=== PATIENT | female | born 1940 | race Caucasian/White ===

== ENCOUNTER 2018-12-19 13:40 | Inpatient (IN) | payer MEDICARE, BC ==
[~2018-12-19 13:40] MED LIST: Glycopyrrolate 0.2 MG/ML 5 ML SYRINGE ONE; Lidocaine 1% PF 5 ML VIAL ONE; Ondansetron PF 4 MG/2 ML Vial ONE; PROPOFOL 200 MG/20 ML VIAL ONE; Rocuronium Bromide 10 MG/ML (10ML VIAL) ONE
--- NOTE | 2018-12-19 14:27 | RAD ---
Chest AP view INDICATION: Fall COMPARISON: None FINDINGS: Lungs:COPD Cardiac silhouette pulmonary vasculature:Moderate cardiomegaly Pleural spaces:No pleural effusion or pneumothorax is demonstrated. Upper abdomen:No abnormality seen. Osseous structures: Thoracolumbar scoliosis. There is scattered degenerative and osteoarthritic vazquez e present. Additional findings:None. IMPRESSION: No acute cardiopulmonary abnormality.
--- NOTE | 2018-12-19 14:29 | RAD ---
XR Femur Rt 2 View STANDARD INDICATION: Fall at home COMPARISON: None. FINDINGS: Bones: There is an obliquely oriented fracture involving the distal femoral shaft with displacement o f the distal fracture fragment medially and posteriorly one shaft width. There is 5.7 cm of apposition of the fracture fragments. Soft tissues: Within normal limits. Joints: There is mild degenerative arthrosis of the hip. Visualized right knee demonstrates mild huff ges. IMPRESSION: Displaced distal right femoral shaft fracture
--- NOTE | 2018-12-19 14:30 | RAD ---
AP view of the pelvis INDICATION: Fall at home COMPARISON: None. FINDINGS: Bones: No acute fracture or subluxation is evident. Bone mineralization appears within normal limits. Hips: Mild degenerative change of both hips SI joints and symphysis pubis: Mild degenerative change Intrapelvic contents: Within normal limits. IMPRESSION: No acute osseous abnormality.
[2018-12-19 14:46] LABS: PTT 29.1 SEC (22.9-36.1); Prothrombin Time 13.6 SEC (12.0-14.7)
[2018-12-19 14:48] LABS: #Lymphocytes 0.7 thou/uL (1.20-3.40); #Monocytes 0.5 thou/uL (0.11-0.59); #Neutrophils 8.2 thou/uL (1.40-6.50); %Basophils 0.3 % (0.0-1.0); %Eosinophils 0.1 % (0.0-10.0); %Lymphocytes 7.5 % (21.0-51.0); %Monocytes 5.3 % (0.0-10.0); %Neutrophils 86.8 % (42.0-75.0); Hemoglobin 11.8 g/dL (12.0-16.0); Mean Corpuscular HGB CONC 34.2 g/dL (32.0-36.0); Mean Corpuscular Hemoglobin 31.1 pg (27.0-31.0); Mean Corpuscular Volume 91.1 fL (78.0-98.0); Mean Platelet Volume 6.7 fL (7.4-10.4); Platelet Count 268 thou/uL (130-400); RBC Distribution Width 11.7 % (11.5-14.5); White Blood Cell (WBC) Count 9.4 thou/uL (4.8-10.8)
[2018-12-19 15:00] LABS: ALT (SGPT) 23 U/L (8-55); AST (SGOT) 26 U/L (5-34); Albumin 4.4 g/dL (3.4-4.8); Alkaline Phosphatase 65 U/L (40-150); Anion Gap 13 mmol/L (10-20); BUN (Urea Nitrogen) 19 mg/dL (9.8-20.1); Bilirubin, Total 0.6 mg/dL (0.2-1.2); Calc. Creatinine Clearance 0 mL/min (70-130); Calcium 9.3 mg/dL (7.8-10.44); Carbon Dioxide 23 mmol/L (23-31); Chloride 107 mmol/L (98-107); Estimated GFR-MDRD 90; Globulin 2.7 g/dL (2.4-3.5); Glucose 131 mg/dL (83-110); Potassium 3.7 mmol/L (3.5-5.1); Protein, Total 7.1 g/dL (6.0-8.3); Sodium 139 mmol/L (136-145)
[2018-12-19] MEDS ORDERED: Morphine 4 MG/ML VIAL SLOW IVP PRN (15:44)
[2018-12-19] MEDS ORDERED: Ondansetron ODT 4 MG TAB PO PRN (15:44)
[2018-12-19] MEDS ORDERED: Dextrose 5% in Water 1,000 ML IV PRN (15:44)
[2018-12-19] MEDS ORDERED: Dextrose 50% Abboject 50 ML SYRINGE SLOW IVP PRN (15:44)
[2018-12-19] MEDS ORDERED: hydrALAZINE 20 MG/ML VIAL SLOW IVP PRN ×3 (15:44→17:09)
[2018-12-19] MEDS ORDERED: Morphine 2 MG/ML SYRINGE SLOW IVP PRN (15:44)
[2018-12-19] MEDS ORDERED: HumaLOG 300 UNITS/3 ML VIAL SC PRN (15:44)
[2018-12-19] MEDS ORDERED: ceFAZolin Sodium (SDC) 2 GM/100 ML BAG ONE (15:55)
[2018-12-19] MEDS ORDERED: Fentanyl 100 MCG/2 ML VIAL ONE ×2 (16:04→17:50)
--- NOTE | 2018-12-19 17:47 | RAD ---
RIGHT FEMUR SIX FLUOROSCOPIC SPOT IMAGES: INDICATIONS: History of ORIF of the right femur. COMPARISON: Prior exam from 12/19/2018. FINDINGS: Since the comparison examination, there has been interval open reduction and internal fixation of the displaced distal femoral shaft fracture. Fracture alignment is near anatomic. Instrumentation proj ects in the expected position without postoperative complication. Total fluoroscopic time was 109.2 seconds. Total exposure was 8.35 millicuries. IMPRESSION: Interval open reduction and internal fixation of the right distal femoral shaft fracture. POS: BH
[2018-12-19] MEDS ORDERED: Promethazine HCl 25 MG/ML VIAL IM PRN (17:50)
[2018-12-19] MEDS ORDERED: HYDROmorphone 2 MG/ML VIAL SLOW IVP PRN (17:50)
[2018-12-19] MEDS ORDERED: Ondansetron HCl/PF 4 MG/2 ML Vial IVP PRN (17:50)
[2018-12-19] MEDS ORDERED: Promethazine HCl 25 MG/ML VIAL SLOW IVP PRN (17:50)
[2018-12-19] MEDS ORDERED: PACU-Morphine 4MG/ML VIAL SLOW IVP PRN (17:50)
[2018-12-19] MEDS: Senokot S 8.6-50 MG TAB PO SCH (19:59)
[2018-12-19] MEDS: Gabapentin 100 MG CAP PO SCH (19:59)
[2018-12-19] MEDS: Acetaminophen 500 MG TAB PO SCH ×2 (19:59→23:31)
[2018-12-19] MEDS: Famotidine 20 MG TAB PO SCH (19:59)
[2018-12-19] MEDS: Ibuprofen 600 MG TAB PO SCH (20:00)
[2018-12-19] MEDS: CEFAZOLIN 2 GM, IV Admixture Fee-Chemo 1 UNITS in Sodium Chloride 0.9% 100 ML IVPB SCH (23:31)
[2018-12-20 00:14] VITALS: BMI 30.1
[2018-12-20] MEDS ORDERED: traMADol HCl 50 MG TAB PO PRN ×2 (01:21)
--- NOTE | 2018-12-20 01:49 | PRG ---
DATE OF SERVICE: 12/20/2018 SUBJECTIVE: The patient is currently on the surgical floor. She is admitted today, status post ground level fall, when she sustained a right distal femur fracture. She has undergone operative procedure by Orthopedics today, which she tolerated well. She has returned to the floor. She has a diet, and we are transitioning her pain medications to p.o. OBJECTIVE: VITAL SIGNS: The patient's vital signs are stable. She is afebrile. GENERAL: She appears in no distress. She is resting comfortably at time of my exam. Postop dressing is clean, dry, and intact. ASSESSMENT: 1. Status post ground level fall. 2. Status post open reduction and internal fixation of right distal femur fracture. PLAN: Plan will be to continue supportive care. Begin physical and occupational therapy in the morning and discuss placement. Job ID: [id number]
[2018-12-20] MEDS: Ibuprofen 600 MG TAB PO SCH ×4 (03:30→20:04)
[2018-12-20] MEDS: Acetaminophen 500 MG TAB PO SCH ×4 (05:53→22:59)
[2018-12-20 06:19] LABS: #Lymphocytes 1.4 thou/uL (1.20-3.40); #Monocytes 0.5 thou/uL (0.11-0.59); #Neutrophils 3.9 thou/uL (1.40-6.50); %Basophils 0.6 % (0.0-1.0); %Eosinophils 0.5 % (0.0-10.0); %Lymphocytes 23.6 % (21.0-51.0); %Monocytes 9.2 % (0.0-10.0); %Neutrophils 66.1 % (42.0-75.0); Hemoglobin 8.8 g/dL (12.0-16.0); Mean Corpuscular HGB CONC 34.4 g/dL (32.0-36.0); Mean Corpuscular Hemoglobin 32.4 pg (27.0-31.0); Mean Corpuscular Volume 94.2 fL (78.0-98.0); Mean Platelet Volume 6.5 fL (7.4-10.4); Platelet Count 182 thou/uL (130-400); RBC Distribution Width 11.9 % (11.5-14.5); White Blood Cell (WBC) Count 5.9 thou/uL (4.8-10.8)
[2018-12-20 06:40] LABS: Phosphorus 3.3 mg/dL (2.3-4.7)
[2018-12-20 06:42] LABS: Anion Gap 10 mmol/L (10-20); BUN (Urea Nitrogen) 14 mg/dL (9.8-20.1); Calc. Creatinine Clearance 96 mL/min (70-130); Calcium 7.8 mg/dL (7.8-10.44); Carbon Dioxide 22 mmol/L (23-31); Chloride 107 mmol/L (98-107); Estimated GFR-MDRD Greater than 90; Glucose 107 mg/dL (83-110); Magnesium 2.1 mg/dL (1.6-2.6); Potassium 3.5 mmol/L (3.5-5.1); Sodium 135 mmol/L (136-145)
[2018-12-20] MEDS: CEFAZOLIN 2 GM, IV Admixture Fee-Chemo 1 UNITS in Sodium Chloride 0.9% 100 ML IVPB SCH (07:51)
--- NOTE | 2018-12-20 07:56 | HP ---
CHIEF COMPLAINT: The patient presents for evaluation of fall. History is provided by the patient. The patient comes in using EMS. HISTORY OF PRESENT ILLNESS: The patient is a 78-year-old female, who presents to the ER using EMS after a ground-level fall this morning. It took her until 12 p.m. to get to her phone and call EMS. En route, the patient's vitals were stable. GCS 15. Pain from the right leg. Denies loss of consciousness or hitting her head. The patient reports no other injury, no pain from her chest, abdomen, or pelvic region. PAST MEDICAL HISTORY: The patient reports having neuropathy, which caused her to have numbness of her leg and lost balance, in which she used gabapentin 600 three times a day. PAST SURGICAL HISTORY: 1. Hysterectomy. 2. Hernia repair. SOCIAL HISTORY: Alcohol, social. Drug use, no. Smoking, no. The patient is living along at home. ALLERGIES: NO KNOWN ALLERGIES. MEDICATIONS: Current medications, 1. Gabapentin 600 three times a day. 2. Cholesterol medication. LABORATORY INTERPRETATION: White blood count is 9.4, hemoglobin 11.8. Coag normal. CPK 552. Sodium 139, potassium 3.7, creatinine 0.64, glucose 131, and calcium 9.3. AST 26, ALT 23. Chest x-ray is normal. X-ray of the right femur showed displaced distal right femur shaft fracture. REVIEW OF SYSTEMS: Noncontributory expect as per HPI. PHYSICAL EXAMINATION: CONSTITUTIONAL: The patient is alert and awake, no signs of acute distress. HEENT: Normal on inspection. No bleeding. No bruising. No tender to touch. NECK: Normal range of motion. Trachea midline. No tenderness. RESPIRATORY: Chest has no bruising, no bleeding, no deformity. Chest raises equal bilaterally. Breath sounds are clear bilaterally. CARDIOVASCULAR: Regular rate and rhythm. Heart sounds are normal. ABDOMEN: Soft and nondistended. Bowel sounds are normal. BACK: Normal inspection. Normal range of motion. No tenderness. EXTREMITIES: Upper extremities; neurovascularly intact. Normal range of motion. Lower extremities; left extremity has normal range of motion, neurovascularly intact. Right extremity shows ecchymose of the lateral of the right thigh. Right lower extremity shortened lateral external rotation. Range of motion is limited. Sensation is intact. Posterior tibial pulse is normal. Peripheral pulse is normal. NEUROLOGIC: No focal neuro deficits. SKIN: Warm, dry, and normal in color. DIAGNOSES: 1. Status post fall. 2. fracture of the right femur. PLAN: Dr. Campuzano already saw the patient. He decided to take the patient to the OR for operation today. Anticipate the patient will be moved to surgical floor for postop. Plan for placement is acute rehab facility. Job ID: [id number] MTDD
[2018-12-20] MEDS ORDERED: Potassium Phosphate 15 MMOL in Sodium Chloride 0.9% 250 ML 250 ML IVPB SCH (08:30)
[2018-12-20] MEDS: Famotidine 20 MG TAB PO SCH (08:34)
[2018-12-20] MEDS: Senokot S 8.6-50 MG TAB PO SCH ×2 (08:34→20:04)
[2018-12-20] MEDS: Gabapentin 100 MG CAP PO SCH ×3 (08:34→20:03)
[2018-12-20] MEDS: Ascorbic Acid 500 mg Chewable Tablet PO SCH ×2 (09:01→20:04)
[2018-12-20] MEDS: Polyethylene Glycol 3350 17 GM Packet PO SCH (09:01)
[2018-12-20] MEDS ORDERED: Hydrocortisone Sod Succ/PF 100 mg/2 ml Vial IVP SCH (10:00)
--- NOTE | 2018-12-20 11:05 | CON ---
DATE OF CONSULTATION: 12/19/2018 HISTORY OF PRESENT ILLNESS: Ms. Carcamo is a pleasant 78-year-old female, she was walking and fell onto her right knee earlier this morning. The patient was down, was home alone, was able to call. At this point, pain currently 2/10 and was brought in progression of deformity of right lower extremity. PAST MEDICAL HISTORY: Hypercholesterolemia, neuropathy, as well as osteoporosis. PAST SURGICAL HISTORY: Hysterectomy and a hernia. MEDICATIONS: Include Neurontin and cholesterol medicine, not specified. ALLERGIES: NO KNOWN DRUG ALLERGIES. SOCIAL HISTORY: No smoking, tobacco, or drug use. Currently lives at home alone. Was previously manual laborer aquatic life, has three sons at bedside. PHYSICAL EXAMINATION: VITAL SIGNS: 110/61, 75, 16, 97, 2/10 pain, 98% on room air. GENERAL: Alert and oriented female, resting comfortably in bed. No acute distress. EXTREMITIES: Right lower extremity, the patient has sensation decreased in a glove and stocking distribution distally. She will flex and extend her toes. She is slightly internally rotated. Ecchymosis and bruising in posterior knee appears stable. There is a small effusion. The patient has brisk cap refill. The patient has H and H of 11 and 34. INR 1. Creatinine 0.64. RADIOGRAPHS: Show a distal 3rd femoral shaft fracture. IMPRESSION: Right distal 3rd metaphyseal distal shaft fracture. ASSESSMENT AND PLAN: The patient on-call the OR. I discussed with the patient performing a retrograde intramedullary nailing of her right femur. I discussed the risks and benefits of surgery to include pain, scar, bleeding, infection, damage to vital structures, decreased range of motion or strength, knee pain, nonunion, malunion, loss of life or limb. The patient understood the risks and benefits and elects to proceed. The patient will be n.p.o., will be taken to the OR. She received Ancef preoperatively and we will plan with right retrograde nail fixation. Job ID: [id number]
--- NOTE | 2018-12-20 12:48 | OP ---
DATE OF PROCEDURE: 12/19/2018 PREOPERATIVE DIAGNOSIS: Right distal third femoral shaft fracture. POSTOPERATIVE DIAGNOSIS: Right distal third femoral shaft fracture. PROCEDURE PERFORMED: Retrograde intramedullary nailing distal third femoral shaft fracture. TIRE MAN: Lorenzo Squires PA-C. ANESTHESIA: General. ESTIMATED BLOOD LOSS: 150 mL. TOURNIQUET TIME: None. IMPLANTS: Synthes 3 x 340 retrograde antegrade femoral nail and three 5-0 screws. ANTIBIOTICS: Ancef 2 g. COMPLICATIONS: None. HISTORY OF PRESENT ILLNESS: Ms. Carcamo is a 78-year-old female who is status post ground level fall onto her knees. The patient has a history of neuropathy. She fell, sustained a fracture to her right distal femur. I discussed the risks and benefits of the retrograde antegrade femoral nail. I discussed risks and benefits of surgery including pain, scar, bleeding, infection, damage to vital structures , decreased range of motion and strength, nonunion, malunion, fracture above or below the stem, need for further surgeries, damage to vital structures arthritis, loss of life or limb. The patient understood the risks and benefits of procedure and elected to proceed. DESCRIPTION OF PROCEDURE: Time-out was performed designating the patient's right lower extremity as the operative site based on site, consents, and marking. After time-out, the patient's right lower extremity was prepped and draped in a sterile fashion. The patient was placed under fluoroscopic guidance, placed under position. We placed an incision down over the medial aspect of the patellar tendon down through the patellar tendon, blunt dissection to get to right at the center- center position for our guide pin. Radiographs ensured appropriate position on AP and lateral. After this, we placed our guide pin, passed our opening reamer and then passed a finger to reduce the fracture, placed our ball-tipped guidewire, it measured about 480 and we chose the 340. We placed the 340, reamed up to 14, placed a 13 mm nail. She had very little chatter at 14, looked in order to make sure that our nail was buried and had good control of the distal segment. We made a lateral incision down to skin, placed 2 locking screws distally in a static position. Placing the screws, we backflapped the femur to help with apposition of the bone. It felt like on looking at the radiograph, she had good apposition of the bone, overall good maintained alignment with slight extension deformity. We then went proximally and placed a single screw for dynamization bicortically 5.0 screw. We then washed, closed all the incisions 0, 2-0, and mitzy. The patient will be weightbearing as tolerated. She received Ancef for 24 hours. We will follow her inhouse. Job ID: [id number] MTDD
--- NOTE | 2018-12-20 13:54 | PRG ---
DATE OF SERVICE: 12/20/2018 SUBJECTIVE: The patient was admitted on 12/19/2018, status post ground level fall in which she sustained a right distal femur fracture. She is today status postop day #1 for repair of the distal right femur fracture. Dr. Campuzano placed intramedullary nail. She tolerated the procedure well. OBJECTIVE: VITAL SIGNS: Blood pressure 111/51, pulse 67, temperature 97.8, respirations 14, 97% on room air. Blood pressures have been little low at 96/57. GENERAL: She appears to be in no distress. CARDIOVASCULAR: Regular rate and rhythm. Heart sounds are normal. RESPIRATORY: Clear to auscultation bilaterally. LABORATORY DATA: Last white blood cell count 5.9, 66.1% neutrophils, hemoglobin decreased from 11.8 to 8.8, hematocrit decreased from 34.6 to 25.4, INR 1.0, PTT 29.1, CK 115. Sodium 135, potassium 3.5, chloride 107, bicarb 22, BUN 14, creatinine 0.61, calcium 7.8, phosphorus 3.3, magnesium 2.1, cortisol 13.40. ASSESSMENT: 1. Status post ground level fall. 2. Status post open reduction, internal fixation of right distal femur fracture, postop day #1. 3. Chronic neuropathy. 4. Hypotension in the setting of a stressful event without signs of sepsis. PLAN: 1. Continue adequate pain control. Tylenol 1000 mg p.o. q.6, , ibuprofen 600 p.o. q.6. 2. Continue PT/OT. Consult rehab for possible placement as outpatient. 3. Blood pressures remain low in the setting of stressful event, no signs of sepsis. Serum cortisol level which was within normal limits. Did administer hydrocortisone 100 mg with elevated pressures. 4. Decrease gabapentin to 300 mg p.o. t.i.d. from home regimen of 600 mg p.o. t.i.d. 5. Continue ferrous sulfate for anemia. 6. Continue bisphosphonate for osteoporosis, post femur fracture. Job ID: [id number]
[2018-12-20] MEDS: Ferrous Sulfate 325 MG TAB PO SCH (17:44)
[2018-12-20] MEDS ORDERED: Prevnar 13-Val Conj/PF 0.5 ML SYRINGE IM ONE (21:00)
[2018-12-20] MEDS: Hydrocortisone Sod Succ/PF 100 mg/2 ml Vial IVP SCH (22:56)
--- NOTE | 2018-12-21 00:53 | PRG ---
DATE OF SERVICE: 12/21/2018 SUBJECTIVE: The patient remains on the surgical floor. She is postop day 1, status post ground level fall which she sustained a right distal femur fracture. She has undergone open reduction and internal fixation of same. She tolerated the procedure well. Today, she began working with Physical and Occupational Therapy. The patient's blood pressure was a little low today, so she was given 100 mg of hydrocortisone and her cortisol level was checked to be 13. Otherwise, the patient is tolerating a diet and her pain is controlled. PHYSICAL EXAMINATION: VITAL SIGNS: Stable. The patient is afebrile. GENERAL: Currently, the patient is sleeping in bed. She appears comfortable, in no distress. ASSESSMENT: 1. Status post ground level fall. 2. Status post open reduction and internal fixation of right distal femur fracture. PLAN: Plan will be to continue physical and occupational therapy, supportive care, and discuss placement. Job ID: [id number]
[2018-12-21] MEDS: Hydrocortisone Sod Succ/PF 100 mg/2 ml Vial IVP SCH ×3 (05:33→21:38)
[2018-12-21] MEDS: Acetaminophen 500 MG TAB PO SCH ×4 (05:33→23:45)
[2018-12-21] MEDS: Ibuprofen 600 MG TAB PO SCH ×4 (06:21→21:37)
[2018-12-21] MEDS ORDERED: Dexamethasone 1 MG TAB PO SCH (08:00)
[2018-12-21] MEDS: Ferrous Sulfate 325 MG TAB PO SCH ×2 (08:33→17:35)
[2018-12-21] MEDS: Gabapentin 100 MG CAP PO SCH ×3 (08:33→21:37)
[2018-12-21] MEDS: Polyethylene Glycol 3350 17 GM Packet PO SCH (08:34)
[2018-12-21] MEDS: Senokot S 8.6-50 MG TAB PO SCH ×2 (08:34→21:37)
[2018-12-21 11:30] LABS: Anion Gap 11 mmol/L (10-20); BUN (Urea Nitrogen) 13 mg/dL (9.8-20.1); Calc. Creatinine Clearance 97 mL/min (70-130); Calcium 8.7 mg/dL (7.8-10.44); Carbon Dioxide 24 mmol/L (23-31); Chloride 106 mmol/L (98-107); Estimated GFR-MDRD Greater than 90; Glucose 137 mg/dL (83-110); Potassium 3.8 mmol/L (3.5-5.1); Sodium 137 mmol/L (136-145)
--- NOTE | 2018-12-21 11:48 | PRG ---
DATE OF SERVICE: 12/21/2018 SUBJECTIVE: The patient was admitted on 12/19/2018, status post ground level fall. She sustained a distal right femur fracture. She is today status post of day # 2 for repair of the distal right femur fracture. She remains well after her procedure performed by Dr. Campuzano. She has no complaints at this time. OBJECTIVE: VITAL SIGNS: Blood pressure 130/57, temperature 98 degrees, pulse 62, respirations 18, and oxygen saturation 97% on room air. Blood pressures have improved. GENERAL: She appears well. No acute distress. Sitting in chair. CARDIOVASCULAR: Regular rate and rhythm. Heart sounds are normal. RESPIRATORY: Clear to auscultation bilaterally. GI: Nontender, nondistended. Bowel sounds present. MSK: Right femur fracture properly bandaged. LABORATORY DATA: No changes from yesterday with labs as they were not drawn. ASSESSMENT: 1. Status post ground level fall. 2. Status post open reduction and internal fixation of right distal femur fracture, postop day #2. 3. Chronic neuropathy. 4. Secondary adrenal insufficiency. PLAN: 1. Continue adequate pain control. 2. Continue PT and OT. Prepare for discharge to [facility] tomorrow as long as she is stable. 3. Hydrocortisone appears to have elevated the blood pressures at this time. Continue hydrocortisone 25 mg q.8. 4. Continue gabapentin 300 mg p.o. t.i.d. 5. Continue ferrous sulfate for anemia. 6. Continue bisphosphonate for osteoporosis, post femur fracture. Pt was seen and evaluated with Dr. Blood who is agreeable with the plan above. Job ID: [id number] [facility]
[2018-12-21 13:10] LABS: Band 3 % (5-11); Hemoglobin 8.9 g/dL (12.0-16.0); Lymphocytes 9 % (21-51); MDiff Complete? YES; Mean Corpuscular HGB CONC 34.7 g/dL (32.0-36.0); Mean Corpuscular Hemoglobin 31.9 pg (27.0-31.0); Mean Platelet Volume 6.9 fL (7.4-10.4); Monocytes 5 % (0-10); Neutrophil 83 % (42-75); Platelet Count 215 thou/uL (130-400); Platelet Morphology Comment Appears Adequate; Polychromasia SLIGHT = 2-3 cells (100X) (0-2/hpf); RBC Distribution Width 11.6 % (11.5-14.5); Red Blood Cell (RBC) Count 2.79 mill/uL (4.20-5.40)
[2018-12-21] MEDS: Ascorbic Acid 500 mg Chewable Tablet PO SCH (17:35)
--- NOTE | 2018-12-21 23:29 | PRG ---
DATE OF SERVICE: 12/21/2018 SUBJECTIVE: The patient remains on the surgical floor. The patient is postop day #2, status post ground level fall with a right distal femur fracture. The patient reports that she has been ambulating with assistance and that her pain is well controlled. The patient continues to tolerate her diet. No bowel movement since admission. OBJECTIVE: VITAL SIGNS: Stable. The patient is afebrile. GENERAL: The patient is awake, alert, in no acute distress. ASSESSMENT: 1. Status post ground level fall. 2. Postop day #2 open reduction and internal fixation of right distal femur fracture. PLAN: Continue supportive care and continue physical and occupational therapy. Increase bowel regimen. Job ID: [id number] MTDD
[2018-12-21] MEDS ORDERED: Milk Of Magnesia 30 ML UDCUP PO PRN (23:59)
[2018-12-22] MEDS: Ibuprofen 600 MG TAB PO SCH ×2 (04:22→08:31)
[2018-12-22] MEDS: Hydrocortisone Sod Succ/PF 100 mg/2 ml Vial IVP SCH (05:24)
[2018-12-22] MEDS: Acetaminophen 500 MG TAB PO SCH (05:24)
[2018-12-22 07:24] VITALS: BP 135/72; TEMP 97.5
[2018-12-22] MEDS: Ascorbic Acid 500 mg Chewable Tablet PO SCH (08:28)
[2018-12-22] MEDS: Ferrous Sulfate 325 MG TAB PO SCH (08:28)
[2018-12-22] MEDS: Gabapentin 100 MG CAP PO SCH (08:28)
[2018-12-22] MEDS: Polyethylene Glycol 3350 17 GM Packet PO SCH (08:29)
[2018-12-22] MEDS ORDERED: Senokot S 8.6-50 MG TAB PO SCH (09:00)
--- NOTE | 2018-12-22 13:21 | DIS ---
DATE OF ADMISSION: 12/19/2018 DATE OF DISCHARGE: 12/22/2018 RESIDENT: Jelani Frausto. ADMITTING ATTENDING: Matt Blood DO DISCHARGE ATTENDING: Matt Blood DO CONSULTS: Umberto Campuzano MD, Ortho PROCEDURES: Retrograde intramedullary nailing, distal third femoral shaft fracture on 12/19/2018. PRIMARY DIAGNOSES: 1. Right femur fracture. 2. Fall. SECONDARY DIAGNOSES: 1. Neuropathy. 2. Hyperlipidemia. 3. Osteoporosis. 4. Anemia. DISCHARGE MEDICATIONS: 1. Atorvastatin 10 mg p.o. daily. 2. Gabapentin 300 mg t.i.d. 3. Risedronate 150 p.o. q.30. 4. Tylenol 1000 mg p.o. q.6. 5. Vitamin C 500 mg p.o. b.i.d. 6. Ferrous sulfate 325 mg p.o. b.i.d. 7. Tramadol 100 p.o. q.6 p.r.n. 8. Tramadol 50 mg p.o. q.6 p.r.n. 9. Aspirin 81. HISTORY OF PRESENT ILLNESS AND HOSPITAL COURSE: Ms. Carcamo is a 78-year-old female, who presented to the ED via EMS after a ground level fall. She was stable on her route to the ED with a GCS of 15, but with pain in her right leg, she did not lose consciousness on the fall. The patient had right extremity ecchymosis on the lateral right thigh with decrease in range of motion. Dr. Campuzano was consulted at this time, who took her back for retrograde intramedullary nailing of the distal third of the femoral shaft. The structure was seen on femur x-ray. Pelvis x- ray showed no acute bony abnormalities. She tolerated the surgery well and had few complications during her stay. We did decrease her gabapentin 600 to 300 mg p.o. t.i.d. as a controlled cause of her fall. She also had low blood pressures through her stay, and cortisol level of 13 was found, so we started her on hydrocortisone 25 mg q.8 with correction. She had an uneventful stay after correction of her right femur fracture and will be discharged to [facility] today. DISPOSITION: Stable. DISCHARGE INSTRUCTIONS: 1. Location, rehab. 2. Diet, no restrictions. 3. Work with PT, OT. 4. Follow up with Dr. Umberto Campuzano in 14 days; PCP, Jey Carrera MD in 14 days. Findings and plan to have been discussed with the patient and Dr. Blood at bedside. He understands the plan. Job ID: [id number] MTDD
== END 2018-12-22 11:08 | disposition swing bed (61) | DRG 481 ==
LOC: ERS 13:40 → SURG A 15:42 → SJJU 18:18 → SURG A 18:20
PROVIDERS: ADMIT Surgery; ATTEND Surgery
PROC: 0QSB06Z Reposition Right Lower Femur with Intramedullary Internal Fixation Device, Open Approach (ICD-10-PCS; principal; 2018-12-21)
DX: S72.491A Other fracture of lower end of right femur, initial encounter for closed fracture (principal); E27.49 Other adrenocortical insufficiency; G62.9 Polyneuropathy, unspecified; E78.5 Hyperlipidemia, unspecified; M81.0 Age-related osteoporosis without current pathological fracture; D64.9 Anemia, unspecified; E78.00 Pure hypercholesterolemia, unspecified; K46.9 Unspecified abdominal hernia without obstruction or gangrene; I95.9 Hypotension, unspecified; W18.39XA Other fall on same level, initial encounter; Z90.710 Acquired absence of both cervix and uterus; Z90.49 Acquired absence of other specified parts of digestive tract; Y93.89 Activity, other specified
CPT/HCPCS: 36415; 36416; 71045; 72170; 76000; 80048; 80053; 82533; 82550; 83735; 84100; 85007; 85025; 85027; 85610; 85730; 86850; 86900; 86901; 90471; 90670; 93005; C1713; C1769; G0009; G0390; J0690; J1720; J2001; J2405; J2704; J3010; J3490; J7050